=== PATIENT | female | born 1985 | race Two or more races ===

== ENCOUNTER → 2020-02-09 | Outpatient (CLI) | payer OTHER ==
--- NOTE | 2020-02-09 12:44 | KCIC ---
AP and Lateral Views of the Chest 02/09/2020 12:00 AM Indication: Reason: CHRONIC HOARSENESS / Spl. Instructions: / History: Comparison: None Findings: There is no focal consolidation or infiltrate identified. The cardiomediastinal silhouette is within normal limits. There is no evidence of pneumothorax or pleural effusion. No acute osseous abnormalities are identified. Impression: No evidence of acute cardiopulmonary process. Electronically signed by: Joseph Silva MD (02/09/2020 12:42 PM) [id number]
== END | disposition home or self-care (01) ==
LOC: KCIC 11:24
PROVIDERS: ATTEND Family Medicine
DX: R49.0 Dysphonia (principal)
CPT/HCPCS: 71046